=== PATIENT | female | born 1970 | race American Indian/Alaskan Native ===

== ENCOUNTER 2018-02-02 15:50 | Emergency (ER) | payer SELFPAY ==
[2018-02-02 16:39] LABS: Hematocrit 41.5 % (30.3-42.9); Hemoglobin 14.2 gm/dl (10.1-14.3); Mean Corpuscular HGB Conc 34 % (30-34); Mean Corpuscular Hemoglobin 30 pg (28-32); Mean Corpuscular Volume 87 fl (79-97); Platelet Count 182 K/mm3 (140-440); Red Blood Count 4.78 M/mm3 (3.65-5.03); Red Cell Distribution Width 14.2 % (13.2-15.2)
[2018-02-02 16:59] LABS: BUN/Creatinine Ratio 14; Blood Urea Nitrogen 13 mg/dL (7-17); Calcium 9.2 mg/dL (8.4-10.2); Hemolysis Index 9
--- NOTE | 2018-02-03 10:26 | Emergency Department Report ---
HPI - General Chief Complaint: Seizure Time Seen by Provider: 02/03/18 10:13 - HPI HPI: Room 10 The patient a 47 year old female presenting with a chief complaint pseudoseizures and bruising. The patient states she originally went to an urgent care facility secondary to random bruising for the past 2-3 weeks. While there the patient states she had a "pseudoseizure" and was instructed to come to the emergency department for further evaluation. The patient states the past 2 or 3 weeks she has noticed random bruises pop in up over her arms and legs. Patient denies any history of trauma. Patient has a history narcolepsy and states she does not recall waking up in odd areas/positions. The patient states the bruises do not hurt or itch. Patient denies blood in her stool. Patient denies nausea or vomiting. The patient states she had a history random bruises pop in up around her neck 6 years ago and it lasted for 1 year. The patient states she's never seen a traffic agent about this. Location: [See above] Duration: [See above] Quality: Painless Severity: 0/10 Modifying factors: [see above] Context: [see above] Mode of transportation: Unknown ED Past Medical Hx - Past Medical History Previous Medical History?: Yes Hx Seizures: Yes (pseudo) Additional medical history: NARCOLEPSY. CHRONIC BACK PAIN - Surgical History Past Surgical History?: Yes Additional Surgical History: TRACH. RIGHT KNEE -ARTHROSCOPY. X 2. T & A. LAPAROSCOPY secondary to right ectopic . PARTIAL HYSTERECTOMY. BLADDER STRETCHED - Family History Family history: no significant - Social History Smoking Status: Never Smoker Substance Use Type: None (denies illicit drug use), Alcohol (occasional) - Medications Home Medications: Home Medications Medication Instructions Recorded Confirmed Last Taken Type Aspirin [Aspirin BABY CHEW TAB] 81 mg PO QDAY tab.chew 05/09/16 Unknown Rx Cyclobenzaprine 5 mg PO BID PRN 05/09/16 05/09/16 6 Days Ago History ~05/03/16 Imipramine HCl 25 mg PO HS 05/09/16 05/09/16 1 Day Ago History ~05/08/16 Lidocaine 50 mg TRANSDERMA BID PRN 05/09/16 05/09/16 6 Days Ago History ~05/03/16 Lisdexamfetamine Dimesylate 60 mg PO DAILY 05/09/16 05/09/16 1 Day Ago History [Vyvanse] ~05/08/16 Lisinopril [Zestril TAB] 10 mg PO QDAY #30 tablet 05/09/16 Unknown Rx ED Review of Systems ROS: Stated complaint: SEIZURES Other details as noted in HPI Eyes: denies: eye pain ENT: denies: throat pain Cardiovascular: denies: chest pain Gastrointestinal: denies: abdominal pain Genitourinary: denies: dysuria Musculoskeletal: arthralgia Skin: other (random bruises) Neurological: denies: headache Hematological/Lymphatic: easy bruising Physical Exam - Physical Exam Vital Signs: Vital Signs 02/02/18 02/03/18 02/03/18 16:20 03:03 05:11 Temperature 98.8 F 98.2 F 97.6 F Pulse Rate 86 74 78 Respiratory 20 18 18 Rate Blood Pressure 157/104 139/94 Blood Pressure 153/98 [Right] O2 Sat by Pulse 99 99 98 Oximetry 02/03/18 02/03/18 02/03/18 07:31 07:45 07:49 Temperature 97.6 F Pulse Rate 75 64 73 Respiratory 14 14 13 Rate Blood Pressure 142/94 Blood Pressure 143/93 [Right] O2 Sat by Pulse 97 Oximetry 02/03/18 02/03/18 08:00 08:15 Temperature Pulse Rate 71 62 Respiratory 13 11 L Rate Blood Pressure 154/98 161/93 Blood Pressure [Right] O2 Sat by Pulse Oximetry Physical Exam: GENERAL: The patient is well-developed well-nourished female lying on stretcher not appearing to be in acute distress. [] HEENT: Normocephalic. Atraumatic. Extraocular motions are intact. Patient has moist mucous membranes. NECK: Supple. Trachea midline CHEST/LUNGS: Clear to auscultation. There is no respiratory distress noted. HEART/CARDIOVASCULAR: Regular. There is no tachycardia. There is no gallop rub or murmur. ABDOMEN: Abdomen is soft, nontender. Patient has normal bowel sounds. There is no abdominal distention. SKIN: There are bruises of varying stages on the patient's extremities, the largest of which appears on the right forearm and is ovoid in shape and approximately 4 cm at longest diameter NEURO: The patient is awake, alert, and oriented. The patient is cooperative. The patient has no focal neurologic deficits. The patient has normal speech. Cranial nerves II through XII grossly intact, no drift MUSCULOSKELETAL: There is no limitation range of motion. ED Course Vital Signs 02/02/18 02/03/18 02/03/18 16:20 03:03 05:11 Temperature 98.8 F 98.2 F 97.6 F Pulse Rate 86 74 78 Respiratory 20 18 18 Rate Blood Pressure 157/104 139/94 Blood Pressure 153/98 [Right] O2 Sat by Pulse 99 99 98 Oximetry 02/03/18 02/03/18 02/03/18 07:31 07:45 07:49 Temperature 97.6 F Pulse Rate 75 64 73 Respiratory 14 14 13 Rate Blood Pressure 142/94 Blood Pressure 143/93 [Right] O2 Sat by Pulse 97 Oximetry 02/03/18 02/03/18 08:00 08:15 Temperature Pulse Rate 71 62 Respiratory 13 11 L Rate Blood Pressure 154/98 161/93 Blood Pressure [Right] O2 Sat by Pulse Oximetry ED Medical Decision Making - Lab Data Result diagrams: 02/02/18 16:26 02/02/18 16:26 Laboratory Tests 02/02/18 02/02/18 02/03/18 16:26 16:26 09:07 WBC 5.7 RBC 4.78 Hgb 14.2 Hct 41.5 MCV 87 MCH 30 MCHC 34 RDW 14.2 Plt Count 182 PT INR APTT Sodium 141 Potassium 3.9 Chloride 101.2 Carbon Dioxide 29 Anion Gap 15 BUN 13 Creatinine 0.9 Estimated GFR > 60 BUN/Creatinine Ratio 14 Glucose 106 H POC Glucose 87 Calcium 9.2 02/03/18 10:54 WBC RBC Hgb Hct MCV MCH MCHC RDW Plt Count PT 12.5 INR 0.89 APTT 31.0 Sodium Potassium Chloride Carbon Dioxide Anion Gap BUN Creatinine Estimated GFR BUN/Creatinine Ratio Glucose POC Glucose Calcium - Differential Diagnosis thrombocytopenia, coagulopathy, ecchymosis Critical care attestation.: If time is entered above; I have spent that time in minutes in the direct care of this critically ill patient, excluding procedure time. ED Disposition Clinical Impression: Ecchymosis Disposition: DC-01 TO HOME OR SELFCARE Is pt being admited?: No Does the pt Need Aspirin: No Condition: Stable Additional Instructions: Return to the emergency department immediately should you develop worsening symptoms, fever, inability to tolerate food or liquid or any other concerns. Referrals: DICRISTINA,STEVEN, MD [Primary Care Provider] - 3-5 Days JOCELYN THURMAN MD [Staff Physician] - 3-5 Days (Dr. Thurman is a traffic agent. Please follow up with him for further evaluation) Time of Disposition: 11:27
[2018-02-03 11:22] LABS: INR 0.89 (0.87-1.13)
[2018-02-03 11:38] VITALS: BP 139/91
== END 2018-02-03 11:40 | disposition home or self-care (01) ==
LOC: ED 15:50
DX: S50.11XA Contusion of right forearm, initial encounter (principal); R56.9 Unspecified convulsions; G89.29 Other chronic pain; Z88.1 Allergy status to other antibiotic agents; X58.XXXA Exposure to other specified factors, initial encounter; Y93.89 Activity, other specified; Y92.89 Other specified places as the place of occurrence of the external cause; Y99.8 Other external cause status
CPT/HCPCS: 36415; 80048; 82962; 85027; 85610; 85730; 99284